=== PATIENT | female | born 1990 | race Caucasian/White ===

== ENCOUNTER 2017-02-19 14:16 | Emergency (ER) | payer SELFPAY ==
[~2017-02-19] VITALS: Ht 160 cm; Wt 135.5 kg
[2017-02-19 14:17] VITALS: BP 140/82; PULSE 108; RESP 16; TEMP 98; O2SAT 97
[2017-02-19] MEDS ORDERED: RESP: ALBUTEROL 2.5 MG/3 ML NEB (SCH) INH ONE (15:00)
[2017-02-19] MEDS ORDERED: predniSONE 20 MG TAB PO ONE (15:00)
[2017-02-19] MEDS ORDERED: BENZ100 PO (15:03)
[2017-02-19] MEDS ORDERED: VENTAER INH (15:03)
[2017-02-19] MEDS ORDERED: PRED-503 PO (15:03)
[2017-02-19] MEDS ORDERED: MOME17I EACH NARE (15:03)
--- NOTE | 2017-02-19 15:03 | PD ---
HPI Chief Complaint: Cold / Flu Symptoms Time Seen by Provider: 14:47 Travel History International Travel<30 days: No Contact w/Intl Traveler<30days: No Traveled to known affect area: No History of Present Illness HPI 26-year-old female presents emergency Department with complaint of cough, nasal congestion, scratchy throat X 3 days. Reports subjective fever and chills. Denies vomiting. Reports wheezing that started this morning. Denies chest pain or shortness of breath. Denies abdominal pain. Denies ear pain. Has been taking NyQuil, DayQuil, Robitussin for symptom management. No known relieving or aggravating factors. Has no other medical complaints. Allergies to penicillin. Does not have his establish primary care provider. Denies significant past medical history. No current medications. No other modifying factors or associated signs and symptoms. PFSH Past Medical History Hx Anticoagulant Therapy: No Cardiovascular Problems: No Chemotherapy: No Cerebrovascular Accident: No Diabetes: No Respiratory: No ?: Unknown Past Surgical History Hysterectomy: No Social History Alcohol Use: No Tobacco Use: No Substance Use: No Allergies-Medications (Allergen,Severity, Reaction): Coded Allergies: Penicillins (Verified Allergy, Severe, Anaphylaxis, 02/19/17) Reported Meds & Prescriptions Reported Meds & Active Scripts Active Nasonex Nasal [place] (Mometasone Furoate) 50 Mcg/Act Naspr 2 [place] EACH NARE DAILY PRN Tessalon Perles (Benzonatate) 100 Mg Cap 100 Mg PO TID PRN 3 Days Deltasone (Prednisone) 20 Mg Tab 40 Mg PO DAILY 4 Days start 02/20/2017 Ventolin Hfa 18 GM Inh (Albuterol Sulfate) 90 Mcg/Act Aer 2 Puff INH Q4-6H Review of Systems Except as stated in HPI: all other systems reviewed are Neg Physical Exam Narrative GENERAL: Well-nourished, well-developed female patient, in no acute distress; afebrile, nontoxic-appearing SKIN: Warm and moist. HEAD: Atraumatic. Normocephalic. EYES: Pupils equal and round. No scleral icterus. No injection or drainage. ENT: Mucosa pink and moist. No erythema or exudates. No uvular edema. No uvular , palatal, or tonsillar deviation. Airway patent. EARS: Bilateral pinnae and external canals appear within normal limits. Bilateral tympanic membranes without erythema, dullness or perforation. NECK: Trachea midline. No lymphadenopathy. CARDIOVASCULAR: Regular rate and rhythm. No murmur appreciated. RESPIRATORY: No accessory muscle use. Lungs sounds with mild wheezing throughout on auscultation. Breath sounds equal bilaterally. No audible wheezing. No retractions or tachypnea. GASTROINTESTINAL: Abdomen soft, non-tender, nondistended. Hepatic and splenic margins not palpable. Bowel sounds are active 4 quadrants. MUSCULOSKELETAL: No obvious deformities. No clubbing. No cyanosis. No edema. NEUROLOGICAL: Awake and alert. Oriented 3. No obvious cranial nerve deficits. Motor grossly within normal limits. Normal speech. Moves all extremities. 5/5 strength to all extremities. PSYCHIATRIC: Appropriate mood and affect; insight and judgment normal. Data Data Last Documented VS Vital Signs Date Time Temp Pulse Resp B/P (MAP) Pulse Ox O2 Delivery O2 Flow Rate FiO2 02/19/17 16:28 02/19/17 14:17 98.0 108 16 97 Orders Orders Chest, Single Ap (02/19/17 14:57) Prednisone (Deltasone) (02/19/17 15:00) Albuterol Neb (Albuterol Neb) (02/19/17 15:00) Influenzae A/B Antigen (02/19/17 14:57) Ed Discharge Order (02/19/17 16:10) MDM Medical Decision Making Medical Screen Exam Complete: Yes Emergency Medical Condition: Yes Medical Record Reviewed: Yes Differential Diagnosis Bronchitis, pneumonia, influenza, viral illness Narrative Course 26-year-old female with cough/cold/flu symptoms 2-3 days. Patient is afebrile and nontoxic-appearing. Reports subjective fever and chills at home. Denies vomiting. Lungs with mild wheezing throughout. Patient is in no acute distress. No retractions or tachypnea. Chest x-ray, influenza, albuterol nebulizer, prednisone ordered. 1555: Chest x-ray concludes: Chest X-Ray 02/19/17 1257 Signed Impressions: Service Date/Time: Sunday, February 19, 2017 15:01 - CONCLUSION: 1. No acute cardiopulmonary disease. Jostin Guallpa MD 1608: Influenza negative. On reexamination patient denies chest tightness or shortness of breath after albuterol treatment. Discussed viral illness and symptom management. Albuterol inhaler, Deltasone, Tessalon Perles prescribed for home. Instructed patient to follow up with primary care provider. Patient verbalizes understanding and agreement with treatment plan. Patient is medically cleared and stable for discharge. Discussed reasons to return to the emergency department. Patient agrees with treatment plan. The patients vital signs are stable and the patient is stable for outpatient follow-up and treatment. Patient discharged home, stable and in no acute distress. Diagnosis Primary Impression: Acute bronchitis Qualified Codes: J20.9 - Acute bronchitis, unspecified Referrals: [facility] Primary Care Physician Patient Instructions: Acute Bronchitis (ED), General Instructions Departure Forms: Tests/Procedures, Work Release Enter return to work date: Feb 21, 2017 Additional Instructions: Use Albuterol inhaler as prescribed Take oral steroids as prescribed and complete full course Use Tessalon Perles as prescribed to decrease coughing spasms [id number] decongestants or antihistamines as directed and as needed for symptom management Your cough can last 4-6 weeks Drink plenty of fluids to prevent dehydration Use hot air humidifier to decrease cough exacerbation Turn off ceiling fans and sleep with head of bed elevated Avoid triggers such as second hand smoke, dust, known allergens Follow-up with your primary care provider Return to the emergency department immediately with worsening of symptoms Med/Other Pt SpecificInfo: Prescription(s) given Scripts Mometasone Nasal [place] (Nasonex Nasal [place]) 50 Mcg/Act Naspr 2 SPRAY EACH NARE DAILY Y for NASAL CONGESTION, #1 BOTTLE 0 Refills Prov: Lou CoatesP 02/19/17 Benzonatate (Tessalon Perles) 100 Mg Cap 100 MG PO TID Y for COUGH for 3 Days, CAP 0 Refills Prov: Lou CoatesP 02/19/17 Prednisone (Deltasone) 20 Mg Tab 40 MG PO DAILY for 4 Days, #8 TAB 0 Refills start 02/20/2017 Prov: Lou Coates 02/19/17 Albuterol 18 GM Inh (Ventolin Hfa 18 GM Inh) 90 Mcg/Act Aer 2 PUFF INH Q4-6H, #1 INHALER 0 Refills Prov: Lou Coates 02/19/17 Disposition: 01 DISCHARGE HOME Condition: Stable Lou Coates Feb 19, 2017 15:03
--- NOTE | 2017-02-19 15:34 | RADRPT ---
EXAM DATE/TIME: 02/19/2017 15:01 [facility] COMPARISON: No previous studies available for comparison. INDICATIONS : Cough, wheezing started 3 days ago. MEDICAL HISTORY : None. SURGICAL HISTORY : None. ENCOUNTER: Initial ACUITY: 3 days PAIN SCORE: 5/10 LOCATION: middle chest. FINDINGS: A single view of the chest demonstrates the lungs to be symmetrically aerated without evidence of mas s, infiltrate or effusion. The cardiomediastinal contours are unremarkable. Osseous structures are intact. CONCLUSION: 1. No acute cardiopulmonary disease. Jostin Guallpa MD on February 19, 2017 at 15:31 Board Certified Radiologist. This report was verified electronically.
== END 2017-02-19 16:31 | disposition home or self-care (01) ==
LOC: NEPD 14:16
DX: J20.9 Acute bronchitis, unspecified (principal)
CPT/HCPCS: 71010; 87804; 94664; 99285; J7512; J7613

== ENCOUNTER → 2017-04-07 | Outpatient (CLI) | payer OTHER ==
[~2017-04-07] MED LIST: BENZ100 PO; DOXY10TA PO; MOME17I EACH NARE; PRED-503 PO; TRICTAB PO; VENTAER INH
== END ==
LOC: HPND 13:52
PROVIDERS: ATTEND Family Medicine
DX: Z34.90 Encounter for supervision of normal pregnancy, unspecified, unspecified trimester (principal)
CPT/HCPCS: 76801

== ENCOUNTER → 2017-06-02 | Outpatient (CLI) | payer OTHER ==
[~2017-06-02] MED LIST changes: -BENZ100 PO; -MOME17I EACH NARE; -PRED-503 PO
== END ==
LOC: HPND 12:36
PROVIDERS: ATTEND Family Medicine
DX: O99.212 Obesity complicating pregnancy, second trimester (principal); E66.01 Morbid (severe) obesity due to excess calories; Z68.42 Body mass index [BMI] 45.0-49.9, adult; Z36.3 Encounter for antenatal screening for malformations
CPT/HCPCS: 76811

== ENCOUNTER → 2017-07-13 | Outpatient (CLI) | payer OTHER | LOC: HPND 12:36 | PROVIDERS: ATTEND Family Medicine | DX: O99.212 Obesity complicating pregnancy, second trimester (principal); E66.01 Morbid (severe) obesity due to excess calories; Z68.42 Body mass index [BMI] 45.0-49.9, adult | CPT/HCPCS: 76816 ==

== ENCOUNTER → 2017-08-16 | Outpatient (CLI) | payer OTHER | LOC: HPND 09:37 | PROVIDERS: ATTEND Family Medicine | DX: O99.212 Obesity complicating pregnancy, second trimester (principal); E66.01 Morbid (severe) obesity due to excess calories; Z68.42 Body mass index [BMI] 45.0-49.9, adult | CPT/HCPCS: 76816 ==

== ENCOUNTER 2017-10-17 08:04 | Inpatient (IN) ==
--- NOTE | 2017-10-17 08:41 | ED ---
History of Present Illness Primary Care Physician: No Primary Care Physician Chief Complaint: Leakage of fluid History of Present Illness: 27-year-old G1 at 39/5 presenting to the OB ED with complaints of leakage of fluid. Patient states that at around 730 this morning she had a large gush of clear fluid. Denied any abnormal odor or appearance of the fluid. Denies any vaginal bleeding, decreased movement. She has been having mild contractions every hour or so. She is otherwise had no complications during this . She was told she had a UTI at her last visit 5 days ago, was unable to fill her prescription for Keflex due to penicillin allergy. She continues to have some dysuria. Denies any fever, chills, headache or vision changes. Review of Systems All other systems reviewed negative except as stated in HPI [facility] - Medical History Medical History: Medical History (Last Updated 10/17/17 @ 09:07 by Reggie Sue MD, R2) Anxiety - Surgical History Surgical History: Surgical History (Last Updated 10/17/17 @ 09:07 by Reggie Sue MD, R2) Hx laparoscopic cholecystectomy - Tobacco History Smoking Status: Never smoker - Travel History Recent Travel in the [place] Within the Last 8 Weeks: No Recent Travel Out of the Country Within the Last 8 Weeks: No Medications and Allergies Allergies Allergy/AdvReac Type Severity Reaction Status Date / Time Penicillins Allergy Severe Anaphylaxis Verified 04/11/17 11:23 Home Medications Medication Instructions Recorded Confirmed Type PNV cmb#95-ferrous fumarate-FA 1 tab PO DAILY 10/17/17 10/17/17 History [] Exam Vital signs: Intake & Output 10/16/17 10/17/17 10/17/17 18:59 06:59 18:59 Weight 140 kg Narrative: GENERAL: Well-nourished, well-developed patient. SKIN: Warm and dry. HEAD: Normocephalic and atraumatic. EYES: No scleral icterus. No injection or drainage. ENT: No nasal drainage noted. Mucous membranes pink. Airway patent. NECK: Supple, trachea midline. No JVD. CARDIOVASCULAR: Regular rate and rhythm without murmurs, gallops, or rubs. RESPIRATORY: Breath sounds equal bilaterally. No accessory muscle use. ABDOMEN/GI: Abdomen soft, non-tender, bowel sounds present, no rebound, no guarding Gravid to 39 weeks size GENITOURINARY: External Genitalia: intact and normal in appearance Cervix: Midposition Dilatation: 1 Effacement: 70 Station: -2 Presentation: Vertex Membranes: Ruptured Uterine Contractions: Small contractions every 2-3 minutes FHT's: Category: 1 Baseline: 145 Reactive:y Variability: Moderate Decels: Absent EXTREMITIES: No cyanosis or edema. BACK: Nontender without obvious deformity. No CVA tenderness. NEUROLOGICAL: Awake and alert. Motor and sensory grossly within normal limits. Five out of 5 muscle strength in all muscle groups. Normal speech. Assessment and Plan - Diagnosis (1) Rupture of membranes with clear amniotic fluid Status: Acute - Plan 27-year-old G1 at 39/5 presented to the OB ED rupture membranes. Clear fluid. Amnisure positive. Will admit to labor and delivery for anticipated vaginal delivery. /-2 on admission. -GBS negative -Initial BP of 159/108, however improved to 124/55 with a larger cuff -Will use Cervidil as a cervical ripening agent -Otherwise routine labor and delivery orders Discharge Plan - Discharge Disposition Patient Disposition: 30 Still Patient - Discharge Condition Condition: Good - Physicians Team ED Provider: Martin Portillo Primary Care Provider: Primary Care Yvette Zaldivar - Rxs /Orders / Referrals /Forms Prescriptions: No Action PNV cmb#95-ferrous fumarate-FA [] 28 mg iron- 800 mcg Tablet 1 tab PO DAILY - Discharge Instructions Print Language: Persian
[2017-10-17] MEDS ORDERED: Sodium Chlor 0.9% Inj 500 ML IV.SIG PRN (08:52)
[2017-10-17] MEDS ORDERED: fentaNYL Citrate Inj 100 MCG/2 ML Ampul IV.PUSH PRN (08:52)
[2017-10-17] MEDS ORDERED: Naloxone Inj 0.4 MG/ML Vial IV.PUSH PRN ×2 (08:52→17:20)
[2017-10-17] MEDS ORDERED: Oxytocin 30 Units/500ml Premix 30 UNITS/500 ML BAG IV.SIG ONE (08:52)
[2017-10-17] MEDS ORDERED: Sod Chloride 0.9% Inj 1,000 ML IV.CONT PRN (08:52)
[2017-10-17] MEDS ORDERED: Citric Acid/Sodium Citrate Liq 30 ML UDC PO SCH (09:00)
--- NOTE | 2017-10-17 09:14 | P.HPOB ---
History of Present Illness: 27-year-old G1 at 39/5 presenting to the OB ED with complaints of leakage of fluid. Patient states that at around 730 this morning she had a large gush of clear fluid. Denied any abnormal odor or appearance of the fluid. Denies any vaginal bleeding, decreased movement. She has been having mild contractions every hour or so. She is otherwise had no complications during this . She was told she had a UTI at her last visit 5 days ago, was unable to fill her prescription for Keflex due to penicillin allergy. She continues to have some dysuria. Denies any fever, chills, headache or vision changes. Review of Systems All other systems reviewed negative except as stated in HPI [facility] - Medical History Medical History: Medical History (Last Updated 10/17/17 @ 09:07 by Reggie Sue MD, R2) Anxiety - Surgical History Surgical History: Surgical History (Last Updated 10/17/17 @ 09:07 by Reggie Sue MD, R2) Hx laparoscopic cholecystectomy - Tobacco History Smoking Status: Never smoker - Travel History Recent Travel in the [place] Within the Last 8 Weeks: No Recent Travel Out of the Country Within the Last 8 Weeks: No Medications and Allergies Allergies Allergy/AdvReac Type Severity Reaction Status Date / Time Penicillins Allergy Severe Anaphylaxis Verified 04/11/17 11:23 Home Medications Medication Instructions Recorded Confirmed Type PNV cmb#95-ferrous fumarate-FA 1 tab PO DAILY 10/17/17 10/17/17 History [] Exam Vital signs: Intake & Output 10/16/17 10/17/17 10/17/17 18:59 06:59 18:59 Weight 140 kg Narrative: GENERAL: Well-nourished, well-developed patient. SKIN: Warm and dry. HEAD: Normocephalic and atraumatic. EYES: No scleral icterus. No injection or drainage. ENT: No nasal drainage noted. Mucous membranes pink. Airway patent. NECK: Supple, trachea midline. No JVD. CARDIOVASCULAR: Regular rate and rhythm without murmurs, gallops, or rubs. RESPIRATORY: Breath sounds equal bilaterally. No accessory muscle use. ABDOMEN/GI: Abdomen soft, non-tender, bowel sounds present, no rebound, no guarding Gravid to 39 weeks size GENITOURINARY: External Genitalia: intact and normal in appearance Cervix: Midposition Dilatation: 1 Effacement: 70 Station: -2 Presentation: Vertex Membranes: Ruptured Uterine Contractions: Small contractions every 2-3 minutes FHT's: Category: 1 Baseline: 145 Reactive:y Variability: Moderate Decels: Absent EXTREMITIES: No cyanosis or edema. BACK: Nontender without obvious deformity. No CVA tenderness. NEUROLOGICAL: Awake and alert. Motor and sensory grossly within normal limits. Five out of 5 muscle strength in all muscle groups. Normal speech. Assessment and Plan - Diagnosis (1) Rupture of membranes with clear amniotic fluid Status: Acute - Plan 27-year-old G1 at 39/5 presented to the OB ED rupture membranes. Clear fluid. Amnisure positive. Will admit to labor and delivery for anticipated vaginal delivery. /-2 on admission. -GBS negative -Initial BP of 159/108, however improved to 124/55 with a larger cuff -Will use Cervidil as a cervical ripening agent -Otherwise routine labor and delivery orders
[2017-10-17 10:01] LABS: Bacteria,Urine Occasional /hpf; Bilirubin,Urine Negative (Negative); Color,Urine Yellow (Yellw/Straw); Glucose,Urine (UA) Negative (Negative); Leukocyte Esterase,Urine Trace (Negative); Nitrite,Urine Negative (Negative); Specific Gravity,Urine 1.023 (1.002-1.035); Squamous Epithelial Cell,Urine 6 /hpf (0-5)
[2017-10-17 10:02] LABS: Baso % (Auto) 0.3 % (0.0-2.0); Eos # (Auto) 0.1 th/mm3 (0.0-0.4); Eos % (Auto) 0.7 % (0.0-4.0); Hematocrit 37.6 % (35.0-46.0); Hemoglobin 12.5 gm/dL (11.6-15.3); Lymph # (Auto) 2.7 th/mm3 (1.0-4.8); Lymph % (Auto) 20.9 % (9.0-44.0); Mean Corpuscular HGB Conc 33.2 % (32.0-36.0); Mean Corpuscular Hemoglobin 29.4 pg (27.0-34.0); Mean Corpuscular Volume 88.6 fL (80.0-100.0); Mean Platelet Volume 7.6 fL (7.0-11.0); Mono # (Auto) 0.9 th/mm3 (0.0-0.9); Mono % (Auto) 7.3 % (0.0-8.0); Neut # (Auto) 9.2 th/mm3 (1.8-7.7); Neut % (Auto) 70.8 % (16.0-70.0); Platelet Count 349 th/mm3 (150-450); Red Blood Count 4.25 mil/mm3 (4.00-5.30); Red Cell Distribution Width 14.6 % (11.6-17.2)
[2017-10-17 10:02] LABS: Clarity,Urine Hazy (Clear)
[2017-10-17 10:21] LABS: Amphetamine Urine With Conf Neg (Neg); Benzodiazepine Urine With Conf Neg (Neg)
[2017-10-17 10:22] LABS: Alanine Aminotransferase 12 U/L (10-53); Albumin 2.7 g/dL (3.4-5.0); Anion Gap 10 meq/L (5-15); Aspartate Aminotransferase 12 U/L (15-37); Blood Urea Nitrogen 13 mg/dL (7-18); Calcium 9.4 mg/dL (8.5-10.1); Chloride 104 meq/L (98-107); Glomerular Filtration Rate Greater Than 89 mL/min (>89); Glucose,Random 83 mg/dL (74-106); Potassium 3.9 meq/L (3.5-5.1); Sodium 138 meq/L (136-145)
[2017-10-17 10:24] LABS: Alkaline Phosphatase 155 U/L (45-117); Total Protein 7.4 g/dL (6.4-8.2)
[2017-10-17] MEDS: fentaNYL Citrate Inj 100 MCG/2 ML Ampul IV.PUSH PRN ×2 (12:14→13:31)
[2017-10-17] MEDS ORDERED: fentaNYL 2MCG-Bupiv 0.125% Epi 150 ML EPIDURAL ONE (14:17)
[2017-10-17] MEDS ORDERED: fentaNYL Citrate Inj 100 MCG/2 ML Ampul EPIDURAL ONE (14:57)
[2017-10-17] MEDS ORDERED: fentaNYL 2MCG-Bupiv 0.125% Epi 150 ML EPIDURAL PRN (14:57)
[2017-10-17] MEDS ORDERED: Lidocaine PF 1% Inj 30 ML Vial ONE (15:56)
[2017-10-17] MEDS ORDERED: Measles/Mumps/Rubella Vaccine Inj 0.5 ML Vial SQ ONE (16:00)
[2017-10-17] MEDS ORDERED: Diphtheria/Tetanus/Pertussis Vaccine Inj 0.5 ML Syringe IM ONE (16:00)
--- NOTE | 2017-10-17 16:43 | P.OBLABOR ---
Objective Vital Signs: Vital Signs - 8 hr 10/17/17 08:41 10/17/17 08:45 10/17/17 09:01 Temperature 98.7 F Pulse Rate 118 H 110 H Respiratory Rate 17 Blood Pressure 154/108 H 124/55 L 10/17/17 09:14 10/17/17 10:14 10/17/17 12:08 Temperature 98.1 F Pulse Rate 101 H 98 H Respiratory Rate 17 Blood Pressure 143/84 H 145/100 H 10/17/17 12:10 10/17/17 13:16 10/17/17 14:42 Temperature Pulse Rate 110 H 103 H 115 H Respiratory Rate Blood Pressure 144/66 H 144/73 H 160/105 H 10/17/17 14:44 10/17/17 14:46 10/17/17 14:50 Temperature 97.7 F Pulse Rate 113 H 113 H Respiratory Rate 16 Blood Pressure 138/54 L 10/17/17 14:51 10/17/17 14:56 10/17/17 15:01 Temperature Pulse Rate 123 H 119 H 113 H Respiratory Rate Blood Pressure 144/61 H 132/42 L 10/17/17 15:06 10/17/17 15:11 10/17/17 15:31 Temperature Pulse Rate 111 H 114 H 131 H Respiratory Rate Blood Pressure 144/53 H 142/61 H 146/69 H Objective: Pelvic Exam: Cervix: [-] Dilatation: [-] Effacement: [-] Station: [-] Presentation: [-] Membranes: [intact or ruptured] Uterine Contractions: [-] FHT's: Category: [-] Baseline: [-] Reactive: [-] Variability: [-] Decels: [-] Assessment and Plan - Diagnosis (1) Rupture of membranes with clear amniotic fluid Status: Acute
--- NOTE | 2017-10-17 17:19 | P.OBDELI ---
Weeks Gestation: 39 Patient Started Active Labor: Yes Medical Induction of Labor: Yes Artificial Rupture of Membrane: No Anesthesia: Epidural Episiotomy: none Vaginal Delivery: Normal Presentation: Occiput anterior Nuchal Cord: x1 Delayed Cord Clamping (45 sec): Yes Placenta: Spontaneous delivery Laceration: 2 deg (Vaginal - perineal area) Repair: Chromic interrupted, Chromic running Estimated blood loss (mL): 150 : Male Infant Delivery Date: 10/17/17 Delivery Time: 16:33 Weight: 0 g (Deferred by parents for skin to skin at present time ) score (1 min): 9 score (5 min): 9
[2017-10-17] MEDS ORDERED: Zolpidem Tartrate 5 MG Tablet PO PRN (17:20)
[2017-10-17] MEDS ORDERED: Benzocaine 20% Top Spray 60 ML Can TOPICAL PRN (17:20)
[2017-10-17] MEDS ORDERED: Bisacodyl 10 MG Supp RECTAL PRN (17:20)
[2017-10-17] MEDS ORDERED: Oxytocin 30 Units/500ml Premix 30 UNITS/500 ML BAG IV.CONT SCH (17:30)
[2017-10-17] MEDS ORDERED: Nitrofurantoin Monohydrate-Macrocrystal 100 MG Capsule PO SCH (18:00)
[2017-10-17] MEDS: Senna/Docusate Sodium 8.6/50 MG Tablet PO SCH (22:21)
[2017-10-18] MEDS: Witch Hazel 50%/Glyderin 12.5% 40 Pad Jar RECTAL PRN ×2 (01:50→18:27)
[2017-10-18] MEDS: Ibuprofen 400 MG Tablet PO PRN ×2 (01:51→16:13)
[2017-10-18] MEDS: Acetaminophen 325 MG Tablet PO PRN (01:51)
[2017-10-18] MEDS: Senna/Docusate Sodium 8.6/50 MG Tablet PO SCH ×2 (08:53→21:41)
--- NOTE | 2017-10-18 12:56 | P.PNOB ---
Subjective Post day: 1 Interval history: Pt seen and examined this morning. day # 1 AFVSS overnight. Decreased lochia. Denies dysuria. No breast tenderness. She is feeding the baby via breast and bottle. Appetite good. No nausea or vomiting. Patient endorses having bowel movement and continued flatus. Ambulating well. Denies calf pain or shortness of breath. Otherwise, she is doing well this morning and has no other concerns. Objective Vital Signs/I&O: Vital Signs 10/17/17 13:16 10/17/17 14:42 10/17/17 14:44 Temperature 97.7 F Pulse Rate 103 H 115 H Respiratory Rate 16 Blood Pressure 144/73 H 160/105 H 10/17/17 14:46 10/17/17 14:50 10/17/17 14:51 Temperature Pulse Rate 113 H 113 H 123 H Respiratory Rate Blood Pressure 138/54 L 10/17/17 14:56 10/17/17 15:01 10/17/17 15:06 Temperature Pulse Rate 119 H 113 H 111 H Respiratory Rate Blood Pressure 144/61 H 132/42 L 144/53 H 10/17/17 15:10 10/17/17 15:11 10/17/17 15:31 Temperature Pulse Rate 67 114 H 131 H Respiratory Rate Blood Pressure 142/61 H 146/69 H 10/17/17 16:41 10/17/17 16:43 10/17/17 16:46 Temperature Pulse Rate 97 H 119 H Respiratory Rate 17 Blood Pressure 134/108 H 137/107 H 10/17/17 17:16 10/17/17 17:18 10/17/17 17:21 Temperature 98.4 F Pulse Rate 110 H Respiratory Rate 18 Blood Pressure 141/73 H 10/17/17 20:00 10/18/17 07:57 Temperature 98.3 F 97.9 F Pulse Rate 108 H 102 H Respiratory Rate 18 18 Blood Pressure 148/71 H 129/65 Intake & Output 10/17/17 10/18/17 10/18/17 18:59 06:59 18:59 Weight 140 kg Other: Weight On Admission 140 kg Result Diagrams: 10/17/17 09:41 10/17/17 09:41 Objective Remarks: GENERAL: Well-nourished, well-developed patient. CARDIOVASCULAR: Regular rate and rhythm without murmurs, gallops, or rubs. RESPIRATORY: Breath sounds equal bilaterally. No accessory muscle use. ABDOMEN/GI: Abdomen soft, non-tender. Fundus: Firm, non-tender at umbilicus. GENITOURINARY: Light to moderate bleeding. EXTREMITIES: No cyanosis or edema, non-tender, without signs of DVT. Medications and IVs: Active Medications Acetaminophen (Tylenol) 650 mg PO Q4H PRN PRN Reason: PAIN SCALE 1 TO 2 Last Admin: 10/18/17 01:51 Dose: 650 mg Al Hydroxide/Mg Hydroxide (Milk Of Magnesia Liq) 30 ml PO Q12H PRN PRN Reason: Mild Constipation Benzocaine (Americaine 20% [place]) 1 spray TOPICAL Q4H PRN PRN Reason: For Perineum Discomfort Last Admin: 10/18/17 01:50 Dose: 1 spray Bisacodyl (Dulcolax Supp) 10 mg RECTAL DAILY PRN PRN Reason: SEVERE CONSITIPATION Ephedrine Sulfate (Ephedrine/Ns Syringe) 10 mg IV.PUSH UNSCH PRN PRN Reason: SEE LABEL COMMENTS Stop: 10/18/17 14:57 Fentanyl/Bupivacaine/Sodium Chlor (Fentanyl 2 Mcg-Bupiv 0.125% Epi) 150 mls @ 10 mls/hr EPIDURAL PRN PRN PRN Reason: for Labor Pain Ibuprofen (Motrin) 800 mg PO Q8H PRN PRN Reason: For cramping Last Admin: 10/18/17 01:51 Dose: 800 mg Lactulose (Lactulose Liq) 30 ml PO DAILY PRN PRN Reason: SEVERE CONSITIPATION Miscellaneous Information (Misc Information) 1 each OTHER UNSCH PRN PRN Reason: SEE LABEL COMMENTS Stop: 10/18/17 14:57 Miscellaneous Information (Misc Information) 1 each OTHER UNSCH PRN PRN Reason: SEE LABEL COMMENTS Stop: 10/18/17 14:57 Naloxone HCl (Narcan Inj) 0.1 mg IV.PUSH Q2M PRN PRN Reason: for opiate reversal Nitrofurantoin Macrocrystals (Macrobid) 100 mg PO BIDPC [facility] Stop: 10/29/17 17:59 Ondansetron HCl (Zofran Inj) 4 mg IV.PUSH Q6H PRN PRN Reason: NAUSEA OR VOMITING Last Admin: 10/17/17 14:11 Dose: 4 mg Senna/Docusate Sodium ([place]-Colace) 1 tab PO BID [facility] Last Admin: 10/18/17 08:53 Dose: 1 tab Sennosides (Senokot) 17.2 mg PO Q12H PRN PRN Reason: Moderate Constipation Sodium Chloride (Ns Flush) 2 ml IV.FLUSH BID [facility] Last Admin: 10/18/17 01:53 Dose: 2 ml Sodium Chloride (Ns Flush) 2 ml IV.FLUSH PRN PRN PRN Reason: FLUSH AFTER USING IV ACCESS Witch Jaimee/Glycerin (Tucks Pads) 1 applicatio RECTAL QID PRN PRN Reason: HEMORRHOIDS Last Admin: 10/18/17 01:50 Dose: 1 applicatio Zolpidem Tartrate (Ambien) 5 mg PO HS PRN PRN Reason: SLEEP Assessment and Plan - Diagnosis (1) Vaginal delivery Code(s): Z90.49 - Acquired absence of other specified parts of digestive tract Status: Acute Plan: 27 y/o female who is post day# 1 s/p . -Continue routine care. -Motrin PRN pain. -Encouraged OOB. Advised pelvic rest for 6 wks. -Re: ctrl, she would like to discuss her options at a later date. -Anticipate discharge tomorrow 10/19/17. dw Dr. Bandar MD (2) Dysuria Code(s): F41.9 - Anxiety disorder, unspecified Status: Acute Plan: patient complaining of dysuria prior to delivery -UA: Hazy, 100 protein, trace leukocyte esterase, 17 WBC, occasional bacteria Urine culture: Pending Medications: -Nitrofurantoin 100 mg twice daily
[2017-10-18] MEDS: Nitrofurantoin Monohydrate-Macrocrystal 100 MG Capsule PO SCH (19:46)
[2017-10-19] MEDS: Acetaminophen 325 MG Tablet PO PRN ×2 (04:10→10:18)
[2017-10-19] MEDS: Ibuprofen 400 MG Tablet PO PRN (04:12)
[2017-10-19 09:45] VITALS: BP 129/64; PULSE 105; RESP 20; TEMP 98; O2SAT 99
[2017-10-19] MEDS: Senna/Docusate Sodium 8.6/50 MG Tablet PO SCH (10:18)
[2017-10-19] MEDS: Nitrofurantoin Monohydrate-Macrocrystal 100 MG Capsule PO SCH (10:18)
[2017-10-19] MEDS: Witch Hazel 50%/Glyderin 12.5% 40 Pad Jar RECTAL PRN (10:20)
--- NOTE | 2017-10-19 12:44 | P.PNOB ---
Subjective Post day: 2 Interval history: Pt seen and examined this morning. day # 2 AFVSS overnight. Decreased lochia. Denies dysuria. No breast tenderness. She is feeding the baby via breast and bottle. Appetite good. No nausea or vomiting. Patient endorses having a bowel movement and continues to pass flatus. Ambulating well. Denies calf pain or shortness of breath. Otherwise, she is doing well this morning and has no other concerns. Objective Vital Signs/I&O: Vital Signs 10/18/17 20:00 10/19/17 08:00 Temperature 98.3 F 98.0 F Pulse Rate 92 H 105 H Respiratory Rate 18 20 Blood Pressure 123/71 129/64 Pulse Oximetry 99 Result Diagrams: 10/17/17 09:41 10/17/17 09:41 Objective Remarks: GENERAL: Well-nourished, well-developed patient. CARDIOVASCULAR: Regular rate and rhythm without murmurs, gallops, or rubs. RESPIRATORY: Breath sounds equal bilaterally. No accessory muscle use. ABDOMEN/GI: Abdomen soft, non-tender. Fundus: Firm, non-tender at umbilicus. GENITOURINARY: Light to moderate bleeding. EXTREMITIES: No cyanosis or edema, non-tender, without signs of DVT. Medications and IVs: Active Medications Acetaminophen (Tylenol) 650 mg PO Q4H PRN PRN Reason: PAIN SCALE 1 TO 2 Last Admin: 10/19/17 10:18 Dose: 650 mg Al Hydroxide/Mg Hydroxide (Milk Of Magnesia Liq) 30 ml PO Q12H PRN PRN Reason: Mild Constipation Benzocaine (Americaine 20% Top Nova) 1 spray TOPICAL Q4H PRN PRN Reason: For Perineum Discomfort Last Admin: 10/18/17 01:50 Dose: 1 spray Bisacodyl (Dulcolax Supp) 10 mg RECTAL DAILY PRN PRN Reason: SEVERE CONSITIPATION Fentanyl/Bupivacaine/Sodium Chlor (Fentanyl 2 Mcg-Bupiv 0.125% Epi) 150 mls @ 10 mls/hr EPIDURAL PRN PRN PRN Reason: for Labor Pain Ibuprofen (Motrin) 800 mg PO Q8H PRN PRN Reason: For cramping Last Admin: 10/19/17 04:12 Dose: 800 mg Lactulose (Lactulose Liq) 30 ml PO DAILY PRN PRN Reason: SEVERE CONSITIPATION Naloxone HCl (Narcan Inj) 0.1 mg IV.PUSH Q2M PRN PRN Reason: for opiate reversal [facility]in [facility]roc[facility] Stop: 10/29/17 17:59 Last Admin: 10/19/17 10:18 Dose: 100 mg Ondansetron HCl (Zofran Inj) 4 mg IV.PUSH Q6H PRN PRN Reason: NAUSEA OR VOMITING Last Admin: 10/17/17 14:11 Dose: 4 mg Senna/Docusate Sodium (Palmira-Colace) 1 tab PO BID [facility] Last Admin: 10/19/17 10:18 Dose: 1 tab Sennosides (Senokot) 17.2 mg PO Q12H PRN PRN Reason: Moderate Constipation Sodium Chloride (Ns Flush) 2 ml IV.FLUSH BID [facility] Last Admin: 10/18/17 21:41 Dose: Not Given Sodium Chloride (Ns Flush) 2 ml IV.FLUSH PRN PRN PRN Reason: FLUSH AFTER USING IV ACCESS Witch Jaimee/Glycerin (Tucks Pads) 1 applicatio RECTAL QID PRN PRN Reason: HEMORRHOIDS Last Admin: 10/19/17 10:20 Dose: 1 applicatio Zolpidem Tartrate (Ambien) 5 mg PO HS PRN PRN Reason: SLEEP Assessment and Plan - Diagnosis (1) Vaginal delivery Code(s): Z90.49 - Acquired absence of other specified parts of digestive tract Status: Acute Plan: 27 y/o female who is post day# 1 s/p . -Continue routine care. -Motrin PRN pain. -Encouraged OOB. Advised pelvic rest for 6 wks. -Re: ctrl, she would like to discuss her options at a later date. -Anticipate discharge today 10/19/[address] Regina MD (2) Dysuria Code(s): F41.9 - Anxiety disorder, unspecified Status: Acute Plan: patient complaining of dysuria prior to delivery. Symptoms resolved per patient. -UA: Hazy, 100 protein, trace leukocyte esterase, 17 WBC, occasional bacteria Urine culture: Mixed maría elena, probable contaminants Medications: -Nitrofurantoin 100 mg twice daily for 10 days
== END 2017-10-19 15:43 | disposition home or self-care (01) ==
LOC: HOBED 08:04 → H2E 09:05 → H1EA 19:43
PROVIDERS: ADMIT Obstetrics & Gynecology Maternal & Fetal Medicine; ATTEND Obstetrics & Gynecology Maternal & Fetal Medicine